=== PATIENT | male | born 1990 | race Two or more races ===

== ENCOUNTER 2018-09-08 07:00 | Emergency (ER) | payer OTHER ==
[~2018-09-08] VITALS: Ht 172.7 cm; Wt 75.7 kg
--- NOTE | 2018-09-08 07:10 | NUR ---
PT AMBULATES TO ROOM FROM TRIAGE WITH STEADY GAIT AND BALANCE. NADN. NO DEFECITS OBSERVED.
--- NOTE | 2018-09-08 07:18 | NUR ---
FIRST CONTACT WITH PT. PER PT, "STARTING YESTERDAY I HAVE HAD SEVERE ABDOMINAL PAIN THROUGHOUT MY LOWER ABDOMEN. I HAD A SMALL STOOL THIS MORNING. NO BLOOD WAS IN MY STOOL. I HAVE BLOOD IN MY URINE THAT STARTED YESTERDAY. IT IS IN SPLOTCHES. I HAVE NOT NOTICED CLOTS. MY LOWER BACK HURTS BUT I THINK IT IS FROM TENSING MY MUSCLES. I THREW UP TWICE THIS MORNING. THERE WAS NO BLOOD IN MY VOMIT." NADN. PT LAYING ON GURNEY GUARDING LOWER ABDOMEN. PT HAS UNLABORED RESPIRATIONS EQUAL BILATERALLY. PT DENINES NAUSEA AT THIS TIME. PT DENINES DIARRHEA. PT REQUESTS TO USE THE RESTOOM. PT AMBULATES TO RESTROOM WITH STEADY GAIT AND BALANCE. PT IS BACK TO ROOM FROM RESTROOM. PT PROVIDED SMALL AMOUNT APPROXIMATELY 15 ML OF URINE THAT IS CONCENTRATED DARK YELLOW. PT STATES HIS PAIN IS 8/10. PT CONNECTED TO NIBP AND CONTINOUS PULSE OX. ALL SAFETY MEASURES IN PLACE AND CALL LIGHT WITHIN REACH. FAMILY AT BEDSIDE.
[2018-09-08] MEDS ORDERED: ONDANSETRON 2MG/ML, 2ML IVPush ONE (08:00)
[2018-09-08] MEDS ORDERED: MORPHINE SULFATE 4 MG/ML, 1ML IVPush ONE (08:00)
[2018-09-08] MEDS ORDERED: ONDANSETRON 2MG/ML, 2ML ONE (08:05)
[2018-09-08] MEDS ORDERED: MORPHINE SULFATE 4 MG/ML, 1ML ONE (08:06)
[2018-09-08 08:12] LABS: ALBUMIN 4.4 g/dL (3.4-5.0); ANION GAP 10 mmol/L (5-15); CALCIUM 9.5 mg/dL (8.5-10.1); CHLORIDE 105 mmol/L (98-107)
[2018-09-08 08:15] LABS: ALANINE AMINOTRANSFERASE 28 U/L (12-78); ALKALINE PHOSPHATASE 101 U/L (45-117); BILIRUBIN,TOTAL 1.1 mg/dL (0.2-1.0); CREATININE 1.28 mg/dL (0.7-1.3); TOTAL PROTEIN 7.6 g/dL (6.4-8.2)
[2018-09-08 08:23] LABS: BASOPHILS # (AUTO) 0.03 x10^3/uL (0-0.1); BASOPHILS % (AUTO) 0 % (0-1); EOSINOPHILS # (AUTO) 0.07 x10^3/uL (0-0.4); EOSINOPHILS % (AUTO) 1 % (1-7); LYMPHOCYTES # (AUTO) 2.35 x10^3/uL (1-3.4); LYMPHOCYTES % (AUTO) 29 % (22-44); MD NO; MEAN CORPUSCULAR HEMOGLOBIN 31.1 pg (27.5-34.5); MEAN CORPUSCULAR HGB CONC 34.4 g/dL (33.2-36.2); MEAN CORPUSCULAR VOLUME 90.5 fL (81-97); MEAN PLATELET VOLUME 8.7 fL (7.4-10.4); MONOCYTES # (AUTO) 0.49 x10^3/uL (0.2-0.8); MONOCYTES % (AUTO) 6 % (2-9); NEUTROPHILS # (AUTO) 5.11 x10^3/uL (1.8-6.8); NEUTROPHILS % (AUTO) 64 % (42-75); PLATELET COUNT 286 x10^3/uL (130-400); RED CELL DISTRIBUTION WIDTH 12.4 % (9.4-14.8)
--- NOTE | 2018-09-08 08:29 | NUR ---
LATE NOTE ENTRY FOR 0812. PLACED PIV AND PROVIDED MEDICATIONS PER EMAR. PT STATES, "MY PAIN IS AT A 3-4 NOW FROM AN 8/10" WITHIN 2 MINUTES OF PIV MEDICAITON.
[2018-09-08 08:34] LABS: MICROSCOPIC INDICATED
[2018-09-08 08:40] LABS: CULTURE INDICATED? YES
[2018-09-08 10:07] VITALS: BP 108/65
--- NOTE | 2018-09-08 10:07 | NUR ---
Patient given discharge instructions and they have confirmed that they understand the instructions. Patient ambulatory with steady gait. PT LEFT WITH PRESCRIPTION, DISCHARGE PAPERWORK, AND ALL PERSONAL BELONGINGS.
== END 2018-09-08 10:10 | disposition home or self-care (01) ==
LOC: ED 08:07
DX: N20.2 Calculus of kidney with calculus of ureter (principal); F17.210 Nicotine dependence, cigarettes, uncomplicated
CPT/HCPCS: 36415; 74176; 80053; 81001; 85025; 87086; 96374; 96375; 99284; J2405